=== PATIENT | female | born 1960 | race Caucasian/White ===

== ENCOUNTER 2020-08-16 07:55 | Outpatient (CLI) | payer OTHER, SELFPAY ==
--- NOTE | ~2020-08-16 | MM_ITS ---
EXAMINATION: MM screening genet BI w nico HISTORY: Screening TECHNIQUE: Craniocaudal and mediolateral oblique 3-D tomosynthesis images were obtained and synthetic 2-D images were generated. CAD analysis was submitted and interpreted. COMPARISON: Comparison to multiple prior studies sequentially, with oldest reviewed study dated 01/2011. BREAST PARENCHYMAL COMPOSITION: There are scattered areas of fibroglandular density. FINDINGS: There is no evidence of suspicious mass, calcification, or architectural distortion to sugg est malignancy in either breast. There has been no suspicious interval change. IMPRESSION: 1. No mammographic evidence of malignancy. 2. Recommend routine screening mammography in one year. BI-RADS Category 1: Negative Reviewed, dictated and finalized at location A.
== END 2020-08-16 07:56 | disposition home or self-care (01) ==
LOC: ANHIMG 07:59
PROVIDERS: PCP Internal Medicine; Visit Provider Obstetrics & Gynecology
DX: Z12.31 Encounter for screening mammogram for malignant neoplasm of breast (principal)
CPT/HCPCS: 77063; 77067

== ENCOUNTER → 2020-12-05 12:27 | Outpatient (CLI) | payer OTHER, SELFPAY ==
--- NOTE | ~2020-12-05 | XR_ITS ---
EXAMINATION: XR shoulder RT min 2V DATE: 12/05/2020 12:57 INDICATION: Right shoulder pain. TECHNIQUE: 4 views of right shoulder were obtained. COMPARISON: Right shoulder radiograph 04/18/2012 FINDINGS: There is dextroscoliosis of thoracic spine. No fracture. There is mild glenohumeral joint o steoarthritis and moderate acromioclavicular joint osteoarthritis. IMPRESSION: 1. Polyarticular osteoarthritis. Reviewed, dictated and finalized at location A. 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
--- NOTE | ~2020-12-05 | US_ITS ---
EXAMINATION: US thyroid DATE: 12/05/2020 12:45 INDICATION: Hypothyroidism. TECHNIQUE: Multiple ultrasound images of the thyroid were obtained. COMPARISON: None. FINDINGS: The right thyroid lobe measures 3.8 x 2.0 x 1.4 cm. The left thyroid lobe measures 4.5 x 1.5 x 1.5 c m. The thyroid is diffusely heterogeneous and hypoechoic. No discrete nodule. Vascularity is normal. IMPRESSION: 1. Heterogeneous thyroid, likely chronic lymphocytic (Miladys) thyroiditis. Reviewed, dictated and finalized at location A. 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
== END ==
PROVIDERS: PCP Internal Medicine; Visit Provider Nurse Practitioner
DX: M19.011 Primary osteoarthritis, right shoulder (principal); R79.89 Other specified abnormal findings of blood chemistry; E03.9 Hypothyroidism, unspecified
CPT/HCPCS: 73030; 76536

== ENCOUNTER → 2021-04-11 02:31 | Outpatient (CLI) | payer OTHER, SELFPAY ==
[2021-04-11 23:31] LABS: SARS-CoV-2 RNA PCR Negative
== END ==
PROVIDERS: PCP Internal Medicine; Visit Provider Internal Medicine Gastroenterology
DX: Z01.812 Encounter for preprocedural laboratory examination (principal); Z20.822 Contact with and (suspected) exposure to COVID-19
CPT/HCPCS: C9803; U0003; U0005

== ENCOUNTER 2021-04-14 00:49 | Day surgery (SDC) | payer OTHER, SELFPAY ==
[2021-04-14 06:51] VITALS: BP 124/61; PULSE 72; RESP 20; TEMP 36.4; O2SAT 94; BMI 39.5
[2021-04-14 07:14] LABS: Glucose Point of Care 123 mg/dl (65-105)
--- NOTE | 2021-04-14 07:52 | WPDANESEPPF ---
Anes - Initial Pre Proc Eval Procedure: Operation Date: 04/14/21 08:00 Proposed Procedures p Screening Colonoscopy - Kushal Nuñez MD Date/Time: 04/14/21 07:52 Surgeon: Kushal Nuñez MD Pre Op Diagnosis: neoplasm screening, pers hx colon polyp Patient Data Age: 60 Gender: F Height: 5 ft 7 in Weight: 114.6 kg Last Vital Signs Temp 97.5 F L 04/14/21 06:51 Pulse 72 04/14/21 06:51 Resp 20 04/14/21 06:51 BP 124/61 04/14/21 06:51 Pulse Ox 94 04/14/21 06:51 Allergies Allergy/AdvReac Type Severity Reaction Status Date / Time No Known Allergies Allergy Verified 04/04/21 13:47 Home Medications Medication Instructions Recorded Confirmed Type sertraline 100 mg tablet 100 mg PO DAILY #30 tablet 09/14/19 04/04/21 Rx metformin 500 mg 24 hr 500 mg PO QPM 03/04/20 04/04/21 History tablet,extended release atorvastatin 20 mg tablet 40 mg PO DAILY #90 tablet 12/01/20 04/04/21 Rx bupropion HCl 150 mg 24 hr tablet, 150 mg PO QAM 12/01/20 04/04/21 History extended release omeprazole 20 mg capsule,delayed 20 mg PO DAILY #90 cap 12/01/20 04/14/21 Rx release cholecalciferol (vitamin D3) 1,250 1,250 mcg PO WEEKLY #8 cap 12/07/20 04/04/21 Rx mcg (50,000 unit) capsule sodium,potassium,mag sulfates 17.5 See Rx Instructions PO .COMPLEX 03/22/21 03/29/21 Rx gram-3.13 gram-1.6 gram oral soln #354 ml levothyroxine 125 mcg tablet 125 mcg PO DAILY #60 tablet 03/28/21 04/14/21 Rx trazodone 100 mg tablet See Rx Instructions .ROUTE 04/05/21 Rx .COMPLEX #180 tablet Laboratory Tests 04/14/21 07:06 POC Capillary Glucose 123 mg/dl H mg/dl (65-105) Patient hx anesthesia problems: none Family hx anesthesia problems: none PMFSH Past Medical History Medical History (Updated 03/29/21 @ 08:25 by Patricia Her) Diverticular disease of colon History of toe fracture Surgery 2016 Hypothyroidism Other abnormal glucose Postmenopausal Upper respiratory infection Vitamin D deficiency Surgical History Surgical History (Updated 03/29/21 @ 08:25 by Patricia Her) History of carpal tunnel surgery Family History Family History Mother Family history of diabetes mellitus in first degree relative Family history of kidney disease Acute myocardial infarction Diabetes mellitus Family history of malignant neoplasm Sibling Family history of diabetes mellitus in first degree relative Diabetes mellitus Father Family history of elevated blood lipids Carcinoma of colon Other Family history of arthritis Hypertension Social History Social History Smoking status: Never smoker Alcohol intake: never Living arrangements: with family Spiritual care concerns: No Anes - Eval Final PreProcedure Day of Procedure 04/14/21 07:52 Patient weight: morbidly obese Heart: regular rate and rhythm Lungs: clear to auscultation Airway: Mallampati scale class III Neurological: alert and oriented Last oral intake: >/= 8 hours ASA classification: III Emergent: no Anesthetic plan: proceed Anesthesia type and monitoring: general GIVS and standard monitoring Informed Consent: The patient's anesthetic plan and its attendant risks and benefits were discussed with the patient/family/POA. Questions were solicited and answers provided to the satisfaction of the patient/family/POA.
[2021-04-14] MEDS: LACTATED RINGERS 1,000 ML 150 ML IV CONT (08:00)
[2021-04-14 08:09] VITALS: BP 93/50; PULSE 61; RESP 19; O2SAT 96
[2021-04-14 08:19] VITALS: BP 104/57; PULSE 72; RESP 18; O2SAT 98
[2021-04-14 08:29] VITALS: BP 108/60; PULSE 60; RESP 18; O2SAT 86
--- NOTE | 2021-04-18 16:51 | PM.HPGS ---
History of Present Illness History of Present Illness Consent: Risks, benefits, and alternatives have been discussed and questions answered. Patient agrees to proceed with procedure. Chief complaint: neoplasm screening, pers hx colon polyp Narrative: Michaelle Kennedy is a 60 year old female here for colon cancer screening. She has had polyps removed in the past Review of Systems Review of Systems: All systems reviewed & are unremarkable except as noted in HPI and below PMFSH Past Medical History Medical History Diverticular disease of colon History of toe fracture Surgery 2016 Hypothyroidism Other abnormal glucose Postmenopausal Upper respiratory infection Vitamin D deficiency Surgical History Surgical History History of carpal tunnel surgery Family History Family History Mother Family history of diabetes mellitus in first degree relative Family history of kidney disease Acute myocardial infarction Diabetes mellitus Family history of malignant neoplasm Sibling Family history of diabetes mellitus in first degree relative Diabetes mellitus Father Family history of elevated blood lipids Carcinoma of colon Other Family history of arthritis Hypertension Social History Social History Smoking status: Never smoker Alcohol intake: never Living arrangements: with family Spiritual care concerns: No Meds Home Medications and Allergies Home Medications Medication Instructions Recorded Confirmed Type sertraline 100 mg tablet 100 mg PO DAILY #30 tablet 09/14/19 04/04/21 Rx metformin 500 mg 24 hr 500 mg PO QPM 03/04/20 04/04/21 History tablet,extended release atorvastatin 20 mg tablet 40 mg PO DAILY #90 tablet 12/01/20 04/04/21 Rx bupropion HCl 150 mg 24 hr tablet, 150 mg PO QAM 12/01/20 04/04/21 History extended release omeprazole 20 mg capsule,delayed 20 mg PO DAILY #90 cap 12/01/20 04/14/21 Rx release cholecalciferol (vitamin D3) 1,250 1,250 mcg PO WEEKLY #8 cap 12/07/20 04/04/21 Rx mcg (50,000 unit) capsule sodium,potassium,mag sulfates 17.5 See Rx Instructions PO .COMPLEX 03/22/21 03/29/21 Rx gram-3.13 gram-1.6 gram oral soln #354 ml levothyroxine 125 mcg tablet 125 mcg PO DAILY #60 tablet 03/28/21 04/14/21 Rx trazodone 100 mg tablet See Rx Instructions .ROUTE 04/05/21 Rx .COMPLEX #180 tablet Allergies Allergy/AdvReac Type Severity Reaction Status Date / Time No Known Allergies Allergy Verified 04/04/21 13:47 Exam Const: General: alert Orientation/consciousness: patient oriented x3 Resp: Auscultation: clear to auscultation bilaterally Cardio: Rhythm: regular rhythm GI: GI Palp: Yes Soft to palpation and No Tenderness to palpation present (GI) Neuro: General: patient oriented x3 Assessment and Plan Assessment and plan (1) Screening for colon cancer: Code(s): Z12.11 - Encounter for screening for malignant neoplasm of colon Status: Acute Assessment and Plan: Colonoscopy with possible biopsy or polypectomy or cautery or injection of substances.
== END 2021-04-14 08:45 | disposition home or self-care (01) ==
PROVIDERS: PCP Internal Medicine; Visit Provider Internal Medicine Gastroenterology
PROC: 0DJD8ZZ Inspection of Lower Intestinal Tract, Via Natural or Artificial Opening Endoscopic (ICD-10-PCS; CPT 45378; principal; 2021-04-14 08:00)
DX: Z12.11 Encounter for screening for malignant neoplasm of colon (principal); Z98.0 Intestinal bypass and anastomosis status; K57.30 Diverticulosis of large intestine without perforation or abscess without bleeding; Z86.010 Personal history of colon polyps; Z79.84 Long term (current) use of oral hypoglycemic drugs; E55.9 Vitamin D deficiency, unspecified; E03.9 Hypothyroidism, unspecified; E66.01 Morbid (severe) obesity due to excess calories; Z68.39 Body mass index [BMI] 39.0-39.9, adult
CPT/HCPCS: 45378; 82948; J2704; J7120

== ENCOUNTER 2021-07-13 09:46 | Outpatient (CLI) | payer OTHER, SELFPAY ==
--- NOTE | ~2021-07-13 | DEXA_ITS ---
Bone Density Report Name: Michaelle Kennedy Age: 60 Sex: Female Ethnicity: White Date of : 1960 Indication: postmenopausal; height loss; Referring Provider: Maricarmen Osuna Study: Bone densitometry was performed. Exam Date: July 13, 2021 Accession number: [id number] Bone Density: Region BMD T-score Z-score Classification AP Spine (L1-L4) 0.921 -1.1 0.2 Osteopenia Femoral Neck (Left) 0.749 -0.9 0.3 Normal Total Hip (Left) 0.953 0.1 1.0 Normal Total Hip Bilateral Avg 0.937 -0.1 0.8 Normal Femoral Neck (Right) 0.752 -0.9 0.4 Normal Total Hip (Right) 0.920 -0.2 0.7 Normal World Health Organization criteria for BMD impression classify patients as: Normal (T-score at or above -1.0), Osteopenia (T-score between -1.0 and -2.5), or Osteoporosis (T-score at or below -2.5). 10-year Fracture Risk(1): Major Osteoporotic Fracture 6.0% Hip Fracture 0.3% Reported Risk Factors: [place] (), Neck BMD=0.752, BMI=39.1 (1) FRAX(R) Version 3.08. Fracture probability calculated for an untreated patient. Fracture probability may be lower if the patient has received treatment. Clinical Information Provided by Patient: Has used the following medications: Vitamin D Patient maximum height was 67.5 Menopause Age: 57 No regular weight bearing exercise Drinks caffeinated beverages Onset of menses at age 15 Number of children 1 Impression: The patient has low bone mass, based on the Total Spine T-score. The patient has an estimated ten-year risk of hip fracture of 0.3% and an estimated ten-year risk of major fracture of 6%, based on the WHO FRAX algorithm. Discussion: BONE DENSITY IS LOW AT ONE OR MORE SKELETAL SITES. This patient's lowest T-score is low at one or more skeletal sites. It meets the World Health Organization's (WHO) criteria for ?low bone mass? (T-score between -1.0 and -2.5). The patient's 10-year risk of fracture as calculated by FRAX is less than the threshold where pharmacological therapy is recommended by the National Osteoporosis Foundation (NOF). However, all treatment decisions require clinical judgment and consideration of individual patient factors, including patient preferences, comorbidities, previous drug use, risk factors not captured in the FRAX model (e.g., frailty, falls, vitamin D deficiency, increased bone turnover, interval significant decline in bone density) and possible under or overestimation of fracture risk by FRAX. The patient should follow a healthful lifestyle (good nutrition with adequate calcium and vitamin D, and appropriate weight-bearing exercise). Follow-Up: Consider repeating this study in 2 to 3 years to reassess this patient's status, or sooner if there is some new clinical indication. Reported by: TALI on 07/13/2021 10:10:00 AM.
== END 2021-07-13 09:47 | disposition home or self-care (01) ==
LOC: ANHIMG 09:50
PROVIDERS: PCP Internal Medicine; Visit Provider Nurse Practitioner
DX: M85.80 Other specified disorders of bone density and structure, unspecified site (principal); Z78.0 Asymptomatic menopausal state
CPT/HCPCS: 77080

== ENCOUNTER → 2022-01-24 13:18 | Outpatient (CLI) | payer OTHER, SELFPAY ==
--- NOTE | ~2022-01-24 | XR_ITS ---
XR hip LT min 2V 01/24/2022 13:38 Indication: Left hip pain Procedure: 2 views left hip Comparison: No prior studies for comparison. Findings: Moderate osteoarthritis of the left hip. No fracture or traumatic malalignment. No signific ant soft tissue abnormality. No foreign body. Impression: 1: Moderate osteoarthritis of the left hip. Reviewed, dictated and finalized at location A. Impression: 1: Moderate osteoarthritis of the left hip.
== END ==
PROVIDERS: Visit Provider Nurse Practitioner
DX: M25.552 Pain in left hip (principal); M16.12 Unilateral primary osteoarthritis, left hip
CPT/HCPCS: 73502

== ENCOUNTER 2022-01-26 09:52 | Outpatient (CLI) | payer OTHER, SELFPAY ==
--- NOTE | ~2022-01-26 | MM_ITS ---
EXAMINATION: MM screening genet BI w nico HISTORY: Screening TECHNIQUE: Craniocaudal and mediolateral oblique 3-D tomosynthesis images were obtained and synthetic 2-D images were generated. CAD analysis was submitted and interpreted. COMPARISON: 12/05/2015 BREAST PARENCHYMAL COMPOSITION: The breasts are almost entirely fatty. FINDINGS: There is no evidence of suspicious mass, calcification, or architectural distortion to sugg est malignancy in either breast. There has been no suspicious interval change. IMPRESSION: 1. No mammographic evidence of malignancy. 2. Recommend routine screening mammography in one year. BI-RADS Category 1: Negative Reviewed, dictated and finalized at location A.
== END 2022-01-26 09:53 | disposition home or self-care (01) ==
LOC: ANHIMG 09:53
PROVIDERS: PCP Internal Medicine; Visit Provider Nurse Practitioner
DX: Z12.31 Encounter for screening mammogram for malignant neoplasm of breast (principal)
CPT/HCPCS: 77063; 77067

== ENCOUNTER 2022-08-28 09:30 | Outpatient (RCR) | payer OTHER, SELFPAY ==
[2022-07-19 08:09] VITALS: BMI 38.5
[2022-07-19 11:15] VITALS: BMI 38.5
[2022-08-28 10:24] VITALS: BMI 37.5; BMI 38.5
== END 2022-10-08 11:15 | disposition home or self-care (01) ==
LOC: ANHDMC 09:30
PROVIDERS: PCP Internal Medicine; Visit Provider Nurse Practitioner
DX: E66.9 Obesity, unspecified (principal); Z68.39 Body mass index [BMI] 39.0-39.9, adult; Z71.3 Dietary counseling and surveillance
CPT/HCPCS: 97802; 97803

== ENCOUNTER 2022-10-09 17:55 | Emergency (ER) | payer OTHER, SELFPAY ==
[2022-10-09 17:57] VITALS: BP 129/69; PULSE 81; RESP 18; TEMP 36.4; O2SAT 97
[2022-10-09 18:36] LABS: Strep Group A RT-PCR NOT DETECTED (Negative)
[2022-10-09 18:48] LABS: Influenza A QL RT-PCR Negative (Negative); Influenza B QL RT-PCR Negative (Negative); RSV RNA, RT-PCR Negative (Negative); SARS-CoV-2 RNA PCR Negative
--- NOTE | 2022-10-09 20:06 | ED.GENADULT ---
HPI - General Adult General Chief complaint: Upper Respiratory Infection Stated complaint: cough Time Seen by Provider: 10/09/22 19:43 History of Present Illness HPI narrative: 61-year-old female presenting the emergency department for evaluation of approximately 10 days of respiratory symptoms. Patient states that her grandchildren were sick and now she has symptoms. Patient states over the course of the week she has had cough congestion. Related Data Home Medications Medication Instructions Recorded Confirmed bupropion HCl 150 mg 24 hr tablet, 150 mg PO QAM 12/01/20 07/12/22 extended release calcium carbonate 600 mg calcium 600 mg PO DAILY 07/31/21 07/12/22 (1,500 mg) tablet Allergies Allergy/AdvReac Type Severity Reaction Status Date / Time No Known Allergies Allergy Verified 07/12/22 06:55 Review of Systems Review of Systems: CONSTITUTIONAL: Denies fever, chills, or sweats. EYES: Denies visual changes, redness, or discharge. ENT: Denies rhinorrhea, congestion, sore throat, or otalgia. CARDIOVASCULAR: Denies chest pain, palpitations, or edema. RESPIRATORY: See HPI GASTROINTESTINAL: Denies abdominal pain, nausea, vomiting, or diarrhea. GENITOURINARY: Denies dysuria or hematuria. SKIN: Denies rash or itching. MUSCULOSKELETAL: Denies back pain, joint pain, or myalgia. NEUROLOGIC: Denies headache, numbness, or weakness. [facility] Past Medical History Medical History Diverticular disease of colon History of toe fracture Surgery 2016 Hypothyroidism Other abnormal glucose Postmenopausal Upper respiratory infection Vitamin D deficiency Surgical History Surgical History History of carpal tunnel surgery Family History Family History Mother Family history of diabetes mellitus in first degree relative Family history of kidney disease Acute myocardial infarction Diabetes mellitus Family history of malignant neoplasm Sibling Family history of diabetes mellitus in first degree relative Diabetes mellitus Father Family history of elevated blood lipids Carcinoma of colon Other Family history of arthritis Hypertension Social History Social History (Updated 07/12/22 @ 06:58 by Johny Alvarado) Smoking status: Never smoker Alcohol intake: never Spiritual care concerns: No Exam Narrative: APPEARANCE: Well appearing, no pain, no distress, well-nourished. HEAD: normocephalic, atraumatic. EYES: PERRLA/EOMI, conjunctivae clear. NOSE: Normal no drainage EARS: Left TM erythema THROAT: Pharynx erythema without swelling. NECK: Supple. No adenopathy, no masses. RESPIRATORY: Lungs are clear to auscultation. CARDIOVASCULAR: Regular rate and rhythm without murmurs rubs or gallops. ABDOMINAL: Soft, nontender, nondistended, normal bowel sounds MUSCULOSKELETAL: Moves all extremities. Strength/ROM intact, No edema, No calf tenderness. NEURO: Alert. Cranial nerves II through XII intact. Good gait. Good coordination SKIN: Warm, dry. Normal Color Course Course Emergency Course: Patient is nontachycardic and is not hypoxic. Patient is being treated for an atypical pneumonia and an otitis media. Vital Signs Vital signs: Vital Signs Temperature 97.6 F 10/09/22 17:57 Pulse Rate 81 10/09/22 17:57 Respiratory Rate 18 10/09/22 17:57 Blood Pressure 129/69 10/09/22 17:57 Pulse Oximetry 97 10/09/22 17:57 Oxygen Delivery Room Air 10/09/22 17:57 Temperature 97.6 F 10/09/22 17:57 Pulse Rate 81 10/09/22 17:57 Respiratory Rate 18 10/09/22 17:57 Blood Pressure 129/69 10/09/22 17:57 Pulse Oximetry 97 10/09/22 17:57 Oxygen Delivery Room Air 10/09/22 17:57 Medical Decision Making Vital Signs Vital Signs: Vital Signs Temperature 97.6 F 10/09/22 17:57 Pulse Rate 81 10/09/22 17:57 Respiratory Rate
[2022-10-09] MEDS: BENZONATATE 100 MG CAPSULE PO (20:23)
[2022-10-09] MEDS: AZITHROMYCIN 250 MG TABLET 500 MG PO (20:23)
== END 2022-10-09 20:28 | disposition home or self-care (01) ==
LOC: ANHED 20:19
PROVIDERS: Emergency Provider Emergency Medicine; PCP Internal Medicine
DX: J18.9 Pneumonia, unspecified organism (principal); Z20.822 Contact with and (suspected) exposure to COVID-19; H66.92 Otitis media, unspecified, left ear; E03.9 Hypothyroidism, unspecified
CPT/HCPCS: 87637; 87651; 99283; A9270

== ENCOUNTER 2023-12-16 08:53 | Outpatient (CLI) | payer OTHER, SELFPAY ==
--- NOTE | ~2023-12-16 | DEXA_ITS ---
Bone Density Report Name: ANJELICA HARDING Age: 63 Sex: Female Ethnicity: White Date of : 1960 Indication: postmenopausal; screening for osteoporosis; parental hip fracture; height loss; Referring Provider: TIN LACY Study: Bone densitometry was performed. Exam Date: December 16, 2023 Accession number: [id number] Bone Density: Region BMD T-score Z-score Classification AP Spine(L1-L4) 0.927 -1.1 0.4 Osteopenia Femoral Neck (Left) 0.808 -0.4 1.0 Normal Total Hip (Left) 0.877 -0.5 0.5 Normal Femoral Neck (Right) 0.724 -1.1 0.2 Osteopenia Total Hip (Right) 0.797 -1.2 -0.2 Osteopenia Total Hip Mean 0.837 -0.9 0.2 Normal World Health Organization criteria for BMD impression classify patients as: Normal (T-score at or above -1.0), Osteopenia (T-score between -1.0 and -2.5), or Osteoporosis (T-score at or below -2.5). 10-year Fracture Risk(1): Major Osteoporotic Fracture 14% Hip Fracture 0.4% Reported Risk Factors: [place] (), Neck BMD=0.724, BMI=34.1, parental fracture (1) FRAX(R) Version 3.08. Fracture probability calculated for an untreated patient. Fracture probability may be lower if the patient has received treatment. Clinical Information Provided by Patient: Parent has had a hip fracture Patient maximum height was 67.5 Menopause Age: 57 No regular weight bearing exercise Drinks caffeinated beverages Onset of menses at age 14 Number of children 1 Impression: The patient has low bone mass, based on the Right Total Hip T-score. The patient has an estimated ten-year risk of hip fracture of 0.4% and an estimated ten-year risk of major fracture of 14%, based on the WHO FRAX algorithm. The patient has risk factors, including: parental hip fracture. Discussion: BONE DENSITY IS LOW AT ONE OR MORE SKELETAL SITES. This patient's lowest T-score is low at one or more skeletal sites. It meets the World Health Organization's (WHO) criteria for ?low bone mass? (T-score between -1.0 and -2.5). The patient's 10-year risk of fracture as calculated by FRAX is less than the threshold where pharmacological therapy is recommended by the National Osteoporosis Foundation (NOF). However, all treatment decisions require clinical judgment and consideration of individual patient factors, including patient preferences, comorbidities, previous drug use, risk factors not captured in the FRAX model (e.g., frailty, falls, vitamin D deficiency, increased bone turnover, interval significant decline in bone density) and possible under or overestimation of fracture risk by FRAX. The patient should follow a healthful lifestyle (good nutrition with adequate calcium and vitamin D, and appropriate weight-bearing exercise). Follow-Up: Consider repeating this study in 2 to 3 years to reassess thi
== END 2023-12-16 08:54 | disposition home or self-care (01) ==
LOC: ANHIMG 08:55
PROVIDERS: PCP Family Medicine; Visit Provider Family Medicine
DX: Z78.0 Asymptomatic menopausal state (principal); M85.88 Other specified disorders of bone density and structure, other site; M85.851 Other specified disorders of bone density and structure, right thigh
CPT/HCPCS: 77080

== ENCOUNTER 2024-03-19 08:43 | Outpatient (CLI) | payer OTHER, SELFPAY | END 2024-03-19 08:44 | disposition home or self-care (01) | LOC: ANHAUDIO 08:45 | PROVIDERS: PCP Family Medicine; Visit Provider Family Medicine | DX: H91.90 Unspecified hearing loss, unspecified ear (principal) | CPT/HCPCS: 92552; 92556; 92567 ==

== ENCOUNTER 2024-03-24 19:01 | Emergency (ER) | payer OTHER, SELFPAY ==
[2024-03-24 19:06] VITALS: BP 112/66; PULSE 90; RESP 18; TEMP 36.8; O2SAT 96
[2024-03-24 21:02] LABS: Basophils Percent Auto 0.3 % (0.2-1.2); Eosinophils Percent Auto 0.5 % (0-4.4); Hematocrit 42.3 % (37.0-47.0); Hemoglobin 13.8 g/dL (12.0-15.0); Immature Granulocyte Absolute 0.03 K/mm3 (0.00-0.031); Immature Granulocyte Percent A 0.3 % (0-0.5); Lymphocytes Absolute Auto 1.72 K/mm3 (0.9-3.2); Lymphocytes Percent Auto 19.5 % (18.3-44.2); Mean Corpuscular HGB Conc 32.6 g/dl (32-36); Mean Corpuscular Hemoglobin 31.4 pg (26-34); Mean Corpuscular Volume 96.4 fl (80-100); Mean Platelet Volume 9.1 fl (7.4-10.4); Monocytes Absolute Auto 0.9 K/mm3 (0.1-0.6); Monocytes Percent Auto 10.2 % (2.6-8.5); Neutrophils Absolute Auto 6.1 K/mm3 (1.3-6.7); Neutrophils Percent Auto 69.2 % (45.5-73.1); Platelet Count Result 329 k/mm3 (150-375); Red Blood Count 4.39 M/mm3 (4.2-5.4); Red Cell Distribution Width 12.8 % (11.5-14.5); White Blood Count 8.8 K/mm3 (4.5-10.0)
[2024-03-24 21:13] LABS: Alanine Aminotransferase 21 U/L (6-35); Albumin Level 4.4 g/dL (3.5-5.1); Alkaline Phosphatase 134 U/L (38-126); Anion Gap 7 mmol/L (4-12); Aspartate Amino Transferase 29 U/L (14-36); Bilirubin,Total 0.7 mg/dL (0.2-1.3); Blood Urea Nitrogen 10 mg/dL (7-17); Calcium 9.3 mg/dL (8.4-10.2); Carbon Dioxide 26 mmol/L (22-30); Chloride 98 mmol/L (98-107); Estimated CRCL calculation 117 ml/min; Estimated Glomerular Filt Rate > 60; Glucose 91 mg/dL (65-110); Magnesium 2.1 mg/dL (1.6-2.3); Potassium 4.2 mmol/L (3.4-5.0); Sodium 131 mmol/L (137-145)
[2024-03-24 21:47] LABS: Influenza A QL RT-PCR Negative (Negative); Influenza B QL RT-PCR Negative (Negative); RSV RNA, RT-PCR Negative (Negative); SARS-CoV-2 RNA PCR Negative (Negative)
[2024-03-24 23:27] VITALS: BP 120/56; PULSE 100; RESP 18; O2SAT 100
[2024-03-24] MEDS: SODIUM CHLORIDE 0.9% IV 1,000 ML 999 ML IV CONT (23:34)
[2024-03-24] MEDS: ONDANSETRON INJ 4 MG/2 ML VIAL IV PUSH (23:34)
--- NOTE | 2024-03-25 00:02 | ED.GENADULT ---
HPI - General Adult General Chief complaint: Nausea/Vomiting/Diarrhea Stated complaint: nausea Time Seen by Provider: 03/24/24 23:11 History of Present Illness HPI narrative: Patient is a 63-year-old female who presents to the emergency department this evening complaining nausea, vomiting and diarrhea. Patient states that symptoms started approximately 2 days ago. Patient had diarrhea last night and then again today, nonbloody. Patient states that she has also noticed that she is nauseous and does not have an appetite and has not had much to eat in the last 2 days. Patient denies any sick contacts at home, denies any fevers or chills, denies any upper respiratory symptoms. She denies any chest pain, shortness of breath, or any abdominal pain. No additional symptoms or concerns at this time Related Data Home Medications Medication Instructions Recorded Confirmed cholecalciferol (vitamin D3) 50 50 mcg PO DAILY PRN 02/20/24 mcg (2,000 unit) tablet omeprazole 20 mg capsule,delayed 20 mg PO DAILY PRN 02/20/24 release Allergies Allergy/AdvReac Type Severity Reaction Status Date / Time No Known Allergies Allergy Verified 03/24/24 23:30 Review of Systems Review of Systems: All systems are reviewed and are negative unless stated otherwise in the HPI. [facility] Past Medical History Medical History Diverticular disease of colon History of toe fracture Surgery 2016 Hypothyroidism Other abnormal glucose Postmenopausal Upper respiratory infection Vitamin D deficiency Surgical History Surgical History History of carpal tunnel surgery Family History Family History Mother Family history of diabetes mellitus in first degree relative Family history of kidney disease Acute myocardial infarction Diabetes mellitus Family history of malignant neoplasm Sibling Family history of diabetes mellitus in first degree relative Diabetes mellitus Father Family history of elevated blood lipids Carcinoma of colon Other Family history of arthritis Hypertension Social History Social History Smoking status: Never smoker Alcohol intake: never Substance use: never Substance use type: does not use Lack of Transportation: No Lack of Food: Never True Current Housing: I Have Housing Concerned About Future Housing: No Difficulty Paying Gas/Electric Bills: YES Difficulty Paying for Meds: No Currently Unemployed: No Education: High School Diploma/GED Difficulty w/ Childcare or Family Care: No Living arrangements: with family Spiritual care concerns: No Exam Narrative: General: Alert, awake, afebrile, in no acute distress. HEENT: PERRL, no rhinorrhea, no post nasal drip, oropharynx clear. Cardiovascular: Regular rate and rhythm, no murmurs, rubs or gallops, no peripheral edema. Respiratory: Clear to auscultation bilaterally, no tachypnea, no wheezing, no rhonchi, no rubs, no respiratory distress. Abdomen: Soft, nontender, nondistended, no rebound, no guarding, no peritoneal signs. Musculoskeletal: No joint swelling or deformity, normal muscle tone. Skin: No rashes or petechia, no signs of infection. Neurological: Alert and oriented to person, place, and time. Follows all commands. No focal deficits, speech is clear and fluent. Course Vital Signs Vital signs: Vital Signs Temperature 98.2 F 03/24/24 19:06 Pulse Rate 90 03/24/24 19:06 Respiratory Rate 18 03/24/24 19:06 Blood Pressure 112/66 03/24/24 19:06 Pulse Oximetry 96 03/24/24 19:06 Temperature 98.2 F 03/24/24 19:06 Pulse Rate 95 03/25/24 01:05 Respiratory Rate 18 03/25/24 01:05 Blood Pressure 93/68 L 03/25/24 01:05 Pulse Oximetry 100 03/25/24 01:05 Medical
[2024-03-25 00:07] VITALS: BP 99/58; PULSE 93; RESP 18; O2SAT 97
[2024-03-25] MEDS: SODIUM CHLORIDE 0.9% IV 1,000 ML 999 ML IV CONT (00:40)
[2024-03-25 01:05] VITALS: BP 93/68; PULSE 95; RESP 18; O2SAT 100
== END 2024-03-25 03:00 | disposition home or self-care (01) ==
PROVIDERS: Emergency Provider Emergency Medicine; PCP Family Medicine
DX: R11.2 Nausea with vomiting, unspecified (principal); R19.7 Diarrhea, unspecified; Z20.822 Contact with and (suspected) exposure to COVID-19; E03.9 Hypothyroidism, unspecified; E55.9 Vitamin D deficiency, unspecified; Z79.85 Long-term (current) use of injectable non-insulin antidiabetic drugs; Z79.84 Long term (current) use of oral hypoglycemic drugs
CPT/HCPCS: 36415; 80053; 83735; 85025; 87637; 96361; 96374; 99284; J2405; J7030

== ENCOUNTER 2024-05-22 11:01 | Outpatient (CLI) | payer OTHER, SELFPAY ==
--- NOTE | ~2024-05-22 | MM_ITS ---
EXAMINATION: MM screening genet BI w nico HISTORY: Screening TECHNIQUE: Craniocaudal and mediolateral oblique 3-D tomosynthesis images were obtained and synthetic 2-D images were generated. CAD analysis was submitted and interpreted. COMPARISON: Comparison to multiple prior studies sequentially, with oldest reviewed study dated 11/2013. BREAST PARENCHYMAL COMPOSITION: Not dense: There are scattered areas of fibroglandular density. FINDINGS: There is no evidence of suspicious mass, calcification, or architectural distortion to sugg est malignancy in either breast. There has been no suspicious interval change. IMPRESSION: 1. No mammographic evidence of malignancy. 2. Recommend routine screening mammography in one year. BI-RADS Category 1: Negative Reviewed, dictated and finalized at location B.
== END 2024-05-22 11:02 ==
LOC: MICIMG 11:02
PROVIDERS: PCP Family Medicine; Visit Provider Obstetrics & Gynecology
DX: Z12.31 Encounter for screening mammogram for malignant neoplasm of breast (principal)
CPT/HCPCS: 77063; 77067

== ENCOUNTER 2025-04-04 16:39 | Emergency (ER) | payer OTHER, SELFPAY ==
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
[2025-04-04 16:50] VITALS: BP 109/59; PULSE 78; RESP 16; TEMP 36.7; O2SAT 97
[2025-04-04 17:00] VITALS: BP 105/55; PULSE 82; RESP 16; O2SAT 97
--- NOTE | 2025-04-04 17:32 | ECG_ITS ---
Test Date: 2025-04-04 17:47:44 Measurements Intervals [place] Rate: 73 P: 38 FL: 202 QRS: -14 QRSD: 84 T: 31 QT: 389 QTc: 430 Interpretive Statements SINUS RHYTHM LOW QRS VOLTAGE IN PRECORDIAL LEADS BASELINE ARTIFACT- I, II, III, AVR, AVL BORDERLINE ECG No previous ECG available for comparison Electronically Signed On 04-04-2025 19:15:23 CDT by Jovan Nassar D.O.
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
[2025-04-04 17:45] VITALS: BP 108/57; PULSE 76; RESP 18; O2SAT 96
[2025-04-04 17:58] LABS: Basophils Percent Auto 0.4 % (0.2-1.2); Eosinophils Absolute Auto 0.1 K/mm3 (0-0.3); Eosinophils Percent Auto 0.9 % (0-4.4); Hematocrit 36.3 % (37.0-47.0); Hemoglobin 11.9 g/dL (12.0-15.0); Immature Granulocyte Absolute 0.06 K/mm3 (0.00-0.031); Immature Granulocyte Percent A 0.7 % (0-0.5); Lymphocytes Absolute Auto 1.29 K/mm3 (0.9-3.2); Lymphocytes Percent Auto 14.2 % (18.3-44.2); Mean Corpuscular HGB Conc 32.8 g/dl (32-36); Mean Corpuscular Hemoglobin 31.5 pg (26-34); Mean Platelet Volume 9.1 fl (7.4-10.4); Monocytes Absolute Auto 0.6 K/mm3 (0.1-0.6); Monocytes Percent Auto 6.5 % (2.6-8.5); Neutrophils Percent Auto 77.3 % (45.5-73.1); Platelet Count Result 265 k/mm3 (150-375); Red Blood Count 3.78 M/mm3 (4.2-5.4); Red Cell Distribution Width 12.4 % (11.5-14.5); White Blood Count 9.1 K/mm3 (4.5-10.0)
[2025-04-04 18:07] LABS: Alanine Aminotransferase 22 U/L (6-35); Alkaline Phosphatase 106 U/L (38-126); Anion Gap 5 mmol/L (4-12); Aspartate Amino Transferase 31 U/L (14-36); Bilirubin,Total 0.4 mg/dL (0.2-1.3); Blood Urea Nitrogen 16 mg/dL (7-17); Carbon Dioxide 28 mmol/L (22-30); Chloride 103 mmol/L (98-107); Estimated CRCL calculation 78 ml/min; Estimated Glomerular Filt Rate > 60; Glucose 96 mg/dL (65-110); Potassium 3.9 mmol/L (3.4-5.0); Sodium 136 mmol/L (137-145)
[2025-04-04 18:19] LABS: Add Urine Microscopic? YES; Appearance Urine Clear (Clear); Bacteria Urine None Seen /hpf; Bilirubin Urine Negative (Negative); Blood Urine Negative (Negative); Color Urine Yellow (Yellow); Glucose Urine UA Negative (Negative); Ketones Urine Negative (Negative); Leukocyte Esterase Ur 1+ LEU/UL (Negative); Need Manual Microscopic Reviewed; Nitrate Urine Negative (Negative); Non Pathogenic Casts 0-2; Protein Urine Negative (Negative); RBC Urine 0-2 /hpf (0-2); Squamous Epithelial Cell Urine None Seen /hpf (Few); Troponin I < 0.012 ng/mL (0.000-0.034); WBC Urine 0-5 /hpf (0-3); pH Urine 5.5 (5.0-9.0)
--- OUTSIDE RECORDS SUMMARY | 2025-04-04 18:46 | XMS_ITS | Referral Summary ---
Author Organization [facility] Address [address] [place] [address] Care Team Providers Care Volunteer Recruiter Name Role Phone Chris Dye MD Unavailable [phone] Logan Britton MD Primary Care Provider [phone] Allergies No known active allergies Medications traZODone (DESYREL) 100 mg tabletIndicatio ns:major depressive disorder Take 2 tablets (200 mg total) by mouth nightly Active sertraline (ZOLOFT) 100 mg tabletIndicatio ns:Anxiety with Depression Take 1 tablet (100 mg total) by mouth nightly 8 Active omeprazole (PriLOSEC) 20 mg capsuleIndicati ons:Stress Ulcer Prophylaxis Take 1 capsule (20 mg total) by mouth daily as needed (acid reflux) Active dicyclomine (BENTYL) 20 mg tabletIndicatio ns:Irritable Bowel Syndrome Take 1 tablet (20 mg total) by mouth every 6 (six) hours as needed (cramps) Active atorvastatin (LIPITOR) 40 mg tabletIndicatio ns:hyperlipidem ia Take 1 tablet (40 mg total) by mouth nightly at bedtime 4 Active levothyroxine (SYNTHROID) 100 mcg tabletIndicatio ns:hypothyroidi sm 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 4 Active Mounjaro 10 mg/0.5 mL pen injectorIndicat ions:type 2 diabetes mellitus Inject 10 mg under the skin once a week Saturday or Saturday 4 Active metFORMIN XR (GLUCOPHAGE XR) 500 mg 24 hr tabletIndicatio ns:Prevention of Type 2 Diabetes Mellitus Take 1 tablet (500 mg total) by mouth nightly 4 Active ibuprofen (ADVIL,MOTRIN) 600 mg tabletIndicatio ns:Pain Take 1 tablet (600 mg total) by mouth every 6 (six) hours as needed for pain Active calcium carbonate (OS-BERTHA) 648 mg (260 mg elemental) tabletIndicatio ns:Osteoporosis Take 1 tablet (648 mg total) by mouth daily Active cholecalciferol (VITAMIN D-3) 75564 unit capsuleIndicati ons:Vitamin D Deficiency Take 2,000 Units by mouth daily Active docusate sodium (COLACE) 100 mg capsuleIndicati ons:constipatio n Take 1 capsule (100 mg total) by mouth 2 (two) times a day as needed for constipation 20 capsule 4 Active aspirin 325 mg tabletIndicatio ns:prevention of thrombosis Take 1 tablet (325 mg total) by mouth daily 30 tablet 4 Active HYDROcodone-jitendra taminophen (NORCO) 5-325 mg per tabletIndicatio ns:Pain Take 1 tablet by mouth every 4 (four) hours as needed for pain Do not taken empty stomach or lie down immediately after taking, do not mixed with alcohol or other narcotic pain medications, do not drive after taking 30 tablet 4 Active Additional Information Patient not taking.Reported on 10/07/2024 Active Problems Problem Noted Date Diagnosed Date S/P total left hip arthroplasty 08/06/2024 Anxiety and depression 07/22/2024 Type 2 diabetes mellitus 07/22/2024 Gastroesophageal reflux disease 07/22/2024 Hypercholesterolemia 07/22/2024 Hypothyroidism 07/22/2024 Irritable bowel syndrome 07/22/2024 Left hip pain 04/22/2024 Arthritis of left hip 04/20/2024 Assessment & Plan (04/20/2024 3:58 PM CDT): The patient has end-stage arthritis of the left hip with complete joint space obliteration radiographically. She is failed to respond to conservative measures including physical therapy and joint injections by pain management. She is markedly impaired by the hip and becoming more incapacitated. The patient is currently using a walker and has limited mobility. She wants proceed with definitive treatment would recommend hip replacement surgery. Patient will be enrolled in a total hip protocol. Will check preoperative labs help determine if there is any potential wound healing issues that can be corrected prior to surgery. I would recommend preadmission testing and medical clearance. The risks of hip replacement surgery include infection, incisional numbness, neurovascular compromise, blood loss, blood clots, limb length inequality, fracture, dislocation, where with possible need for revision, wound he has since, medical and anesthetic risks including . The patient should be taking iron supplements two weeks prior to surgery and preparation for perioperative blood loss Primary osteoarthritis of left hip 04/20/2024 Leukocytosis 01/06/2019 Overview (10/07/2024): Elevated white blood cell count, unspecified;Practice ID: [id number] Painful orthopaedic hardware 06/19/2018 Overview (06/19/2018): Added automatically from request for surgery [id number] Contracture of joint of finger of left hand 06/04 Overview (06/19/2018): Added automatically from request for surgery [id number] Extensor tendon adhesions 06/19/2018 Overview (06/19/2018): Added automatically from request for surgery [id number] Closed displaced fracture of posterior process of right talus 03/05/2018 Dislocation of right subtalar joint 03/05/2018 Obesity with body mass index 30 or greater 12/25 Overview (10/07/2024): Body mass index (BMI) 38.0-38.9, adult;Recorded Elsewhere: No Location: [facility] Source: EHR Chronic: N Practice ID: [id number] Billable Time: 08:30:00 AM Atypical squamous cells of u ndetermined significance on cytologic smear of cervix (ASC-US) 09/20/2014 Amenorrhea 09/04/2011 Overview (10/07/2024): Absence of menstruation;Recorded Elsewhere: No Location: [facility] Source: EHR Chronic: N Practice ID: [id number] Billable Time: 08:30:00 AM Menopausal symptom 09/04/2011 Overview (10/07/2024): Menopausal or female climacteric states;Recorded Elsewhere: No Location: [facility] Source: EHR Chronic: N Practice ID: [id number] Billable Time: 08:30:00 AM Social History Tobacco Use Types Packs/Day Years Used Date Smoking Tobacco: Never Smokeless Tobacco: Never Alcohol Use Standard Drinks/Week Comments No 0 (1 standard drink = 0.6 oz pur e alcohol) OASIS D0700: Social Isolation Answer Da te Recorded Frequency of experiencing loneliness or isolatio n Never 07/28/2024 [facility] Utilities Answer Date Recorded In the past 12 months has e electric, gas, oil, or water company threatened to shut off services in your home? No 07/24/2024 Social Connection and Isolat ion Panel [NHANES] Answer Date Recorded In a typical week, how many times do you talk on the phone with family, friends, or neighbors? More than three times a week 07/24/2024 How often do you get togethe r with friends or relatives? More than three times a week 07/24/2024 How often do you attend chur ch or caodaism services? More than 4 times per year 07/24/2024 Do you belong to any clubs o r organizations such as mormonism groups, unions, fraternal or athletic groups, or school groups? No 07/24/2024 How often do you attend meet ings of the clubs or organizations you belong to? Never 07/24/2024 Are you , , di vorced, , never , or living with a partner? 07/24/2024 AUDIT-C Answer Date Recorded Q1: How often do you have a drink containing alcohol? Never 07/10/2024 Q2: How many drinks containi ng alcohol do you have on a typical day when you are drinking? Patient does not drink Q3: How often do you have si x or more drinks on one occasion? Never 07/10/2024 Overall Financial Resource Strain (CARDIA) Answe r Date Recorded How hard is it for you to pa y for the very basics like food, housing, medical care, and heating? Not hard at all 07/24/2024 Hunger Vital Sign Answer Date Recorded Within the past 12 months, y ou worried that your food would run out before you got the money to buy more. Never true 07/24/20 24 Within the past 12 months, t he food you bought just didn't last and you didn't have money to get more. Never true 07/24/2024 PRAPARE - Transportation Answer Date Re corded In the past 12 months, has l ack of transportation kept you from medical appointments or from getting medications? No 07/06 In the past 12 months, has l ack of transportation kept you from meetings, work, or from getting things needed for daily living? No 07/24/2024 Housing Stability Vital Sign Answer Keenan e Recorded In the last 12 months, was t here a time when you were not able to pay the mortgage or rent on time? No 07/24/2024 In the past 12 months, how m any times have you moved where you were living? 1 07/24/2024 At any time in the past 12 m [facility], were you homeless or living in a group home (including now)? No 07/24/2024 Personal Safety Answer Date Recorded Have you ever been in or are you currently in a harmful physical or emotional relationship or is someone making you feel afraid or unsafe? 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 Gender Identity Not on file Sexual Orientation Not on file Last Filed Vital Signs Vital Sign Reading Time Taken Comments Blood Pressure 92/69 09/02/2024 9:39 AM CDT Pulse 72 09/02/2024 9:39 AM CDT Temperature 36.8 C (98.3 F) 09/02/2024 9:39 AM CDT Respiratory Rate 18 09/02/2024 9:39 AM CDT Oxygen Saturation 98% 09/02/2024 9:39 AM CDT Inhaled Oxygen Concentration - - Weight 77.6 kg (171 lb) 08/05/2024 9:33 AM CDT Height 170.2 cm (5' 7.01) 10/07/2024 2:39 PM CS T Body Mass Index 26.78 07/22/2024 6:26 AM CDT Plan of Treatment Not on file Medical Devices Implanted Type Area Slip Presser Device Identifier Shelf Expiration Date Model / Serial / Lot [employer] Trilogy 6.5mm 25mm Self Tap Screw Bone [id number] - [id number] Implanted:Qty: 1 on 07/22/2024 by Desmond Harry MD at Left: Hip [employer] [id number] 01/14/2034 [id number] / / [id number] [employer] G7 52mm Limit Hole Hip E Hemisphere Shell Acetabular Pps [id number] - [id number] Implanted:Qty: 1 on 07/22/2024 by Desmond Harry MD at Left: Hip [employer] [id number] 02/27/2034 [id number] / / [id number] [employer] Liner Acetabular Hip Standard G7 Longevity 36mm Polyethylene Size E [id number] - [id number] Implanted:Qty: 1 on 07/22/2024 by Demsond Harry MD at Left: Hip [employer] [id number] 09/24/[id number] / / [id number] [employer] Echo Bi-Metric 13mm 145mm Noncollar Reduce Proximal Profile Press [id number] - [id number] Implanted:Qty: 1 on 07/22/2024 by Desmond Harry MD at Left: Hip [employer] [id number] 12/24/2033 [id number] / / [id number] [employer] G7 36mm Hip Head Femoral Biolox Delta Option 650-1057 - [id number] Implanted:Qty: 1 on 07/22/2024 by Desmond Harry MD at Left: Hip [employer] 02/27/2034 [id number] / / [id number] [employer] G7 Type 1 Hip +3mm Offset Taper Sleeve Centering Titanium Biolox 650-1067 - [id number] Implanted:Qty: 1 on 07/22/2024 by Desmond Harry MD at Left: Hip [employer] 09/23/2033 [id number] / / [id number] Procedures Procedure Name Priority Date/Time Associated Diagnosis Comments EGFR Routine 07/24/2024 1:11 AM CDT HEMOGLOBIN A1C Routine 04/20/2024 5:51 PM CDT Pain of left hip Arthritis of left hip Pre-op testing Hypoglycemia Vitamin D deficiency from Last 3 Months or Most Recently Relevant to Health Maintenance Results * eGFR (07/24/2024 1:11 AM CDT) eGFR >90 >=60 mL/min/1. 73 m2 Comment: Interpretive Data Reference Interval Normal >/= 90 mL/min/1.73m2 Mildly decreased* 60 - 89 mL/min/1.73m2 Mildly to moderately decreased 45 - 59 mL/min/1.73m2 Moderately to severely decreased 30 - 44 mL/min/1.73m2 Severely decreased 15 - 29 mL/min/1.73m2 Kidney Failure < 15 mL/min/1.73m2 *Relative to young adult level Estimated glomerular filtration rate is determined by the 2020 CKD-EPI equation recommended by the National Kidney Foundation (A Unifying Approach to GFR Estimation: Recommendations of the NKF-ASK Task Force on Reassessing the Inclusion of Race in Diagnosing Kidney Disease, JASN 202). The CKD-EPI equation should not be used for patients with unstable renal function and has not been validated in children and those over 70. Current interpretive data was last reviewed 2021. Blood 07/24/2024 1:11 AM CDT 07/24/2024 1:38 AM CDT us Desmond Harry MD LAB BLOOD ORDERABLES Final Result [facility] [address] [place] [address] * Hemoglobin A1c (04/20/2024 5:51 PM CDT) Hgb A1C 5.2 4.0 - 5.6 % Estimated Average Glucose 103 mg/dL [facility] Comment: The ADA recommends reporting an estimated Average Glucose (eAG) with all Hemoglobin A1c results using the equation derived from a study of 507 normal and diabetic adults. Minority populations were underrepresented and children were not included. (Diabetes Care 31:4704-1545, 2008). The eAG is not equivalent to a fasting glucose. Blood 04/20/2024 5:51 PM CDT 04/20/2024 5:51 PM CDT Desmond Harry MD LAB BLOOD ORDERABLES Final Result Performing Organization Address City/[facility] Co de Phone Number [facility] [address] [place] [address] from Last 3 Months or Most Recently Relevant to Health Maintenance Insurance [facility] [id number] [place] [address] [employer] [facility] [id number] Advance Directives For more information, please contact: [phone] * Full Code (Latest Code Status on File) Date Activated Date Inactivated Comments 07/22/2024 1:50 PM 07/25/2024 9:50 PM Care Teams 

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
--- OUTSIDE RECORDS SUMMARY | 2025-04-04 18:46 | XMS_ITS | Data Portability ---
Author Organization [facility], [place] Address [address] [place] [address] Care Team Providers Care Prefitter Doors Name Role Phone KALPANA BROCK Primary Care Provider Assessment Encounter Date Assessment Date Assessment LastModified by Organization Details LastModified Time 08/23/2020 08/23/2020 Annual gynecological exam performed. Patient will come back in a year unless there are new symptoms. rf medications call if any changes Not available 08/23/2020 15:54:38 09/01/2021 09/01/2021 Annual gynecological exam performed. Patient will come back in a year unless there are new symptoms. Suggest Calcium with Vitamin D if not eating in diet. Patient advised to get annual flu shot. Recommend yearly physicals and preform monthly breast exams. Genetic testing is available for patients with family history of cancer. Engage in safe sexual practices, use condoms. Encouraged to have daily exercise. Avoid tobacco and illicit drugs, moderation of alcohol. If BMI greater than 25 dietary consult advised. If you have any questions please call or email. mammogram order given Not available 09/01/2021 10:36:53 08/06/2023 08/06/2023 Annual gynecological exam performed. Patient will come back in a year unless there are new symptoms. [email or web address] Not available 08/06/2023 09:57:55 Plan of Treatment Reminders Order Date Submit Date Provider Last Modified By Organization Details Last Modified Time Details Appointments None recorded. Lab None recorded. Referral None recorded. Procedures None recorded. Surgeries None recorded. Imaging MAMMO, screening, digital, bilateral [email or web address] [place] [address] - [facility], [address], [place], [address], 4 15:03:34 Medication Orders sertraline 100 mg tablet 2022 023 [facility], [address] [facility], [place], [address], 3 14:13:36 Patient TargetsNo targets recorded. Patient Instructions Encounter Date Encounter Id Patient Instructions Last Modified By Organization Details Last Modified Time 08/23/2020 [id number] Suggest Calcium with Vitamin D if not eating in diet. Patient advised to get annual flu shot. Recommend yearly physicals and preform monthly breast exams. Genetic testing is available for patients with family history of cancer. Engage in safe sexual practices, use condoms. Encouraged to have daily exercise. Avoid tobacco and illicit drugs, moderation of alcohol. If BMI greater than 25 dietary consult advised. If you have any questions please call or email. Not available 08/23/2020 15:54:54 Reason for Referral None Reported. Results Created Date Observation Date Name Description Value Unit Range Abnormal Flag Note LastModifiedBy Organization Detail LastModifiedTime 08/23/2008/26/2020 pap, LB Pap test thin prep Negati ve for Intrae pithel ial Lesion or Malign vijaya normal ACCES ALISA #: [id number] Sourc e: Cervi bertha/E ndoce rvica l LMP: 2009 Date Taken : 08/23 Speci men Type: ThinP rep Vial Date Repor joce: 08/26 Clini bertha Data: Cytot ech: Wong Damon Solle y, CT( CP) Date Repor joce: 08/26 Speci men Adequ acy: Satis facto ry for evalu ation Endoc ervic al/tr ansfo rmati on zone compo nent prese nt Gener al Categ oriza tion: NEGAT JP FOR INTRA EPITH ELIAL LESIO N OR MALIG JESSICA This speci men has been khadijah zed by the ThinP rep Imagi ng Syste m, an inter activ e compu ter syste m which alcides ts the lab in the [facility] of ThinP rep Pap Test slide albaro liu, the slide was revie wed by a Cytot echno logis t and/o r Patho logis tCalvin Rascon N A A S S A Y S R E P O R T TEST NAME CARLOS RIVERO ----- ---- ----- -- HPV High Risk Srinath n (TMA) ThinP rep Vial The human papil lomav irus (HPV) High Risk Scrececilia n is an FDA-a pprov ed in-vi tro ampli fied nucle ic acid test for the quali tativ e detec tion of E6/E7 viral mRNA. Resul ts shoul d be corre lated with patie nt prese ntati on, histo ry, cervi bertha cytol ogy and other clini bertha and labor atory findi ngs. See https ://Unsocial/s ites/ defshiraz lt/fi les-0 AW- [id number] _002_ .pd f for krista gonzales. Test perfo rmed by [facility], d/b/a Benjamín iglesias, [address] [facility], [place] [address] , Bryan Wagner ra, DO, Labor atory [facility]. HPV High Risk *HPV NOT DETEC JOCE (TYPE S 16, 18, 31, 33, 35, 39, 45, 51, 52, 56, 58, 59, 66, 68) *HPV: The human papil lomav irus (HPV) High Risk Scrececilia n is an FDA-a pprov ed in-vi tro ampli fied nucle ic acid test for the quali tativ e detec tion of E6/E7 viral mRNA. Resul ts consueloul d be corre lated with patie nt prese ntati on, histo ry, cervi bertha cytol ogy and other clini bertha and labor atory findi ngs. See https ://Unsocial/s ites/ defshiraz lt/fi les/ 018-0 AW- 76829 _002_ .pd f for krista er cinthiar fang gonzales. Test perfo rmed by [facility] [employer], d/b/a [employer], [address], [place] [address] , Bryan Wagner ra, DO, Labor [facility]. End of Repor t Techn ical servi enzo provi ded by [facility] [email or web address], d/b/a [employer], [address] [place] [address] Bebo Young MD, [facility]. Case revie wed and diagn osis rende red at [facility] [employer], d/b/[employer], [address] [place] [address] Bebo Young MD, [facility]. CONFI DENTI AL Not Available [facility] ([facility]) [address] [place] [address], [place], [address], 08/26/2020 12:41:27 08/23/20 20 08/26/2020 HPV DNA, high- risk HPV high risk NOT DETECT ED normal Not Available [facility] ([facility]) [address] [place] [address], [place], [address], 08/26/2020 12:41:27 09/01/20 21 09/01/2021 IMAGE GUIDE D PAP AND HPV REGAR DLESS image guided Pap, HPV regardless of Pap result SEE RESULT S BELOW CASE REPOR T: Cytol ogy Gynec ologi bertha Repor t Case: [id number] Autho julio g Provi faby: Rebecca Rogers NP Colle cted: 09/01 1208 Order ing Locat ion: [place] Path[facility] log[facility] Recei eryn: 09/02 0018 First Scree n: Strut z, Willi am, CT Speci men: Scree jacobo Pap - Image d, Cervi x STATE MENT OF ADEQU ACY: Satis facto ry for evalu ation Trans forma tion zone compo nent canno t be defin itive ly ident ified due to the prese nce of atrop hy or other hormo nal akhtar es FINAL DIAGN OSIS: Negat jp for Intra epith elial Lesio n or Opal avitia (NIL) . Atrop hic cell anne abdi. Li phelan elfego d by Rajiv alonzo, Wong strong, CT on 2020 at 1:05 PM ----- ----- ----- ----- ----- ----- ----- ----- ----- ----- ----- ----- ----- ----- ----- ----- ----- ---- HPV RESUL TS: HPV mRNA E6/E7 : No HPV mRNA Detec joce NOTE: This high risk HPV mRNA assay detec ts fourt een high- risk HPV types (16, 18, 31, 33, 35, 39, 45, 51, 52, 56, 58, 59, 66, 68) witho ut diffe renti ation . COMME NT: Note: This speci men was revie wed by a Cytot echno logis t and/o r Patho logis t (as indic ated in this repor t) after evalu ation using the Thinp rep Imagi ng Syste m. CLINI BERTHA INFOR MATIO N: Menst rual Statu s: LMP (if appli cable ): Clini bertha Histo ry/Pr eviou s Pap: Type of Neopl gary (if appli cable ): Signi fican t Clini bertha Findi ngs: Other Histo ry: Hormo quyen (if appli cable ): PAP EDUCA LEANDER L NOTE: The Pap Test is a scree jacobo test with an inher ent false negat jp rate. Liqui d-bas e sampl ing may decre ase, but will not elimi gume, false negat jp resul ts. A negat jp resul t does not precl ude the prese nce and/o r devel opmen t of disea se, since the prese nce of abnor mal cells in the sampl e depen ds on the locat ion of the lesio n and sampl ing techn ique. Amos nued regul ar scree jacobo is the best metho d of cance r preve ntion . If repor joce cytol ogic findi ng do not corre late with physi bertha and/o r histo rical findi ngs, furth er inves tigat ion is recom deepika d, as clini edgardo rose nted. Not Available [facility] (Lab) [address] [facility], [place], [address], 09/08/2021 14:10:36 08/06/20 23 08/06/2023 IMAGE GUIDE D PAP AND HPV REGAR DLESS image guided Pap, HPV regardless of Pap result SEE RESULT S BELOW CASE REPOR T: Cytol ogy Gynec ologi bertha Repor t Case: [id number] Autho julio g Provi faby: Teresita Story, MALIA Colle cted: 08/06 1148 Order ing Locat ion: [place] Patho logy Recei eryn: 08/07 0239 First Scree n: Soy asencio, Regan ovalles, CT Speci men: Scree jacobo Pap - Image d, Cervi x STATE MENT OF ADEQU ACY: Satis facto ry for evalu ation Trans forma tion zone compo nent prese nt FINAL DIAGN OSIS: Negat jp for Intra epith elial Lesio n or Opal avitia (NIL) . Atrop hy prese nt. Elect thanh phelan elfego d by Regan Kirby, CT on 2022 at 2:50 PM ----- ----- ----- ----- ----- ----- ----- ----- ----- ----- ----- ----- ----- ----- ----- ----- ----- ---- HPV RESUL TS: HPV mRNA E6/E7 : No HPV mRNA Detec joce NOTE: This high risk HPV mRNA assay detec ts fourt een high- risk HPV types (16, 18, 31, 33, 35, 39, 45, 51, 52, 56, 58, 59, 66, 68) witho ut diffe renti ation . COMME NT: This speci men was revie wed by a Cytot echno logis t and/o r Patho logis t (as indic ated in this repor t) after evalu ation using the Thinp rep Imagi ng Syste m. CLINI BERTHA INFOR MATIO N: Menst rual Statu s: LMP (if appli cable ): Clini bertha Histo ry/Pr eviou s Pap: Type of Neopl gary (if appli cable ): Signi fican t Clini bertha Findi ngs: Other Histo ry: Hormo quyen (if appli cable ): PAP EDUCA LEANDER L NOTE: The Pap Test is a scree jacobo test with an inher ent false negat jp rate. Liqui d-bas ed sampl ing may decre ase, but will not elimi gume, false negat jp resul ts. A negat jp resul t does not precl ude the prese nce and/o r devel opmen t of disea se, since the prese nce of abnor mal cells in the sampl e depen ds on the locat ion of the lesio n and sampl ing techn ique. Amos nued regul ar scree jacobo is the best metho d of cance r preve ntion . If repor joce cytol ogic findi ng do not corre late with physi bertha and/o r histo rical findi ngs, furth er inves tigat ion is recom deepika d, as clini edgardo warrsowmya nted. Not Available [facility] (Lab) [address], [place], [address], 08/08/2023 15:55:09 08/16/2008/16/2020 MAMMO scrececilia louiseg, bilat eral No observ ation record ed. [facility] [address] [facility] [address], [place], [address], 08/16/2020 22:14:45 04/19/20 22 07/13/2021 MAMMO , scree jacobo, bilat eral No observ ation record ed. [facility] [address], [place], [address], 04/22/2022 18:33:26 05/22/20 24 05/22/2024 MAMMO , scree jacobo, digit al, bilat eral No observ ation record ed. [facility] [address], [place], [address], 05/24/2024 10:20:29 Result Notes None recorded. Problems Name Problem SNOMED Code Status Onset Date Resolution Date Notes Provider Name and Address Organization Details Recorded Time SNOMED CT Concept Completed 201508/31/2021 Encntr for inspector rough castings exam (general ) (routine ) w/o abn findings ;Recorde d Elsewher e: No Locat ion: [facility] S ource: EHR Barratte Operator cee: N Gopal ce ID: 0001 Adam lable Time: 01:30:00 PM Maryanne power [facility] 14:56:29 Depressi ve disorder [id number] Completed 201508/31/2021 Major depressi ve disorder , single episode, unspecif ied;David rded Elsewher e: No Locat ion: [facility] S ource: EHR Barratte Operator cee: N Gopal ce ID: 0001 Adam lable Time: 03:30:00 PM Maryanne power [facility] 14:55:[address] Concept Completed 201708/31/2021 Encntr for general adult medical exam w/o abnormal findings ;Recorde d Elsewher e: No Locat ion: [facility] S ource: EHR Barratte Operator cee: N Gopal ce ID: 0001 Adam lable Time: 08:30:00 AM Maryanne power [facility] 14:56:26 Speciali zed medical examinat ion Completed 201108/31/2021 Gynecolo gical Examinat ion;David rded Elsewher e: No Locat ion: [facility] S ource: EHR Barratte Operator cee: N Practi ce ID: 0001 Adam lable Time: 02:30:00 PM Maryanne power, [facility] 14:56:32 Screenin g for malignan t neoplasm of cervix Completed 201208/31/2021 Screenin g for malignan t neoplasm s of the cervix;R ecorded Elsewher e: No Locat ion[facility] S ource: EHR Barratte Operator cee: N Practi ce ID: 0001 Adam lable Time: 08:30:00 AM Maryanne power, [facility] 14:56:09 Menopaus al symptom [id number] Completed 201008/31/2021 Menopaus al or female climacte avis states;R ecorded Elsewher e: No Locat ion: [facility] S ource: EHR Barratte Operator cee: N Practi ce ID: 0001 Adam lable Time: 08:30:00 AM Maryanne power, [facility] 14:56:03 Screenin g for malignan t neoplasm of rectum Completed 201108/31/2021 Screenin g for malignan t neoplasm s of the rectum;R ecorded Elsewher e: No Locat ion: [facility] S ource: EHR Barratte Operator cee: N Practi ce ID: 0001 Adam lable Time: 02:30:00 PM Maryanne power, [facility] 14:56:21 Amenorrh ea [id number] Completed 201008/31/2021 Absence of menstrua tion;Rec orded Elsewher e: No Locat ion[facility] S ource: EHR Barratte Operator cee: N Practi ce ID: 0001 Adam lable Time: 08:30:00 AM Maryanne power [facility] 14:55:42 Body mass index 30+ - obesity [id number] Completed 201708/31/2021 Body mass index (BMI) 38.0-38. 9, adult;Re corded Elsewher e: No [facility] Operator cee: N Practi ce ID: 0001 Adam lable Time: 08:30:00 AM Maryanne Landry jannet, [facility] 14:55:45 Adult health examinat ion Completed 201208/31/2021 Routine Medical Exam;Rec orded Elsewher e: No Locat ion: [facility] S ource: EHR Barratte Operator cee: N Gwendolynti ce ID: 0001 Adam lable Time: 08:30:00 AM Maryanne power, [facility] 14:55:41 Clinical finding Completed 201808/31/2021 Obesity; Recorded Elsewher e: No [facility]at ion[facility] S ource: EHR Barratte Operator cee: N Gwendolynti ce ID: 0001 Adam lable Time: 10:15:00 AM Maryanne Landry jannet, [facility] 14:55:57 Obesity [id number] Completed 201308/31/2021 Obesity; Recorded Elsewher e: No [facility]: EHR [facility] Operator cee: N Practi ce ID: 0001 Adam lable Time: 08:30:00 AM Maryanne Landry jannet, [facility] 14:56:[address] Concept Completed 201508/31/2021 Anxiety; Recorded Elsewher e: No Locat ion[facility] S ource: EHR Barratte Operator cee: N Practi ce ID: 0001 Adam lable Time: 03:30:00 PM Maryanne power [facility] 14:56:24 Screenin g for malignan t neoplasm of colon Completed 201008/31/2021 Special screenin g for malignan t neoplasm s, colon;Pr actice ID: 0001 Maryanneantonia Landry [facility] 14:56:17 Blood leukocyt e number above referenc e range [id number] Completed 201808/31/2021 Elevated white blood cell count, unspecif ied;Prac abdoul ID: 0001 Maryanne Landry [facility] 14:56:00 Finding of body mass index [id number] Completed 201808/31/2021 Body mass index (BMI) 40.0-44. 9, adult;Pr actice ID: 0001 Maryanne Landry [facility] 14:55:55 Problem Notes None recorded. Procedures Surgical History Date Name Laterality Status Provider Name and Address Organization Details Recorded Time 09/01/20 21 Date of Last Pap Smear completed [facility] 09/01/2021 12:58:03 08/16/20 20 Date of Last Mammogram completed [facility] 08/31/2021 15:20:06 11/04/19 18 Other completed [facility] 04/26/2020 17:20:02 11/04/19 18 Other completed [facility] 04/26/2020 17:20:35 11/04/19 18 procedure on ankle completed [facility] 04/26/2020 17:21:34 11/04/19 18 procedure on ankle completed [facility] 04/26/2020 17:22:06 12/05/19 16 Unlisted px brigitte's dvrtclm [facility] 15:18:34 11/04/19 12 Carpal tunnel surgery completed [facility] 04/26/2020 17:22:29 11/04/19 11 Colonoscopy completed [facility] 04/26/2020 17:22:50 05/31/20 10 Laparoscopy completed [facility] 04/26/2020 17:24:44 11/04/19 10 Endometrial Ablation completed [facility] 04/26/2020 17:26:09 11/04/19 07 Hysteroscopy completed [facility] 04/26/2020 17:25:46 Orthopedic Surgery completed [facility] 08/06/2023 09:58:33 Colonoscopy completed [facility] 08/06/2023 09:58:33 Imaging Results None recorded. Procedure Notes None recorded. Medical Equipment None Reported. Allergies No known drug allergies Medications Name Sig Start Date Stop Date Status Note LastModified by Organization Details LastModified Time atorvasta tin 40 mg tablet TAKE 1 TABLET BY MOUTH EVERY DAY AT BEDTIME active Not Available Not Available No t Available atorvasta tin 20 mg tablet TAKE 1 TABLET BY MOUTH ONCE DAILY 08/05 completed Not Available Not Available Not Available trazodone 50 mg tablet take 1 tablet by oral route 3 times every day after meals 09/01 completed Prescrib ed Elsewher e: Yes Loca tion: [facility] odify By: liz marcos DateTime : 08/01/20 11 02:00:00 PM Not Available Not Available Not Available atorvasta tin 10 mg tablet take 1 tablet by oral route every day 09/01 completed Prescrib ed Elsewher e: Yes Loca tion: [facility] M odify By: franky lockett DateTime : 12/26/19 18 08:30:00 AM Not Available Not Available Not Available azithromy jose 250 mg tablet TAKE 2 TABLETS BY MOUTH ON DAY 1, AND THEN TAKE 1 TABLET BY MOUTH ONCE A DAY ON DAY 2 THROUGH DAY 5 08/05 completed Not Available Not Available Not Available benzonata te 200 mg capsule TAKE 1 CAPSULE BY MOUTH THREE TIMES DAILY NEEDED FOR COUGH 08/05 completed Not Available Not Available Not Available ondansetr on HCl 4 mg tablet TAKE 1 TABLET BY MOUTH EVERY 8 HOURS NEEDED FOR NAUSEA AND VOMITING 08/06 completed Not Available Not Available Not Available sertralin e 100 mg tablet Take 1 tablet by mouth once daily 2023 active Not Available Not Available Not Avai lable Zyrtec 10 mg tablet take 1 tablet by oral route every day 09/10 completed Prescrib ed Elsewher e: Yes Loca tion: [facility] odify By: eileen breen DateTime : 12/10/19 12 08:30:00 AM Not Available Not Available Not Available Vitamin B-12 50 mcg tablet 12/26 completed Prescrib ed Elsewher e: Yes [facility] By: amfarhat martinezunthussein DateTime : 09/20/20 14 08:30:00 AM Not Available Not Available Not Available levothyro xine 100 mcg tablet TAKE 1 TABLET BY MOUTH ONCE DAILY 09/01 completed Not Available Not Available Not Available Levoxyl 25 mcg tablet take 1 tablet by oral route every day 09/01 completed Prescrib ed Elsewher e: Yes [facility] By: liz marcos DateTime : 08/01/20 11 02:00:00 PM Not Available Not Available Not Available prednisol one acetate 1 % eye drops,zhen pension 08/23 completed Not Available Not Available Not Available Zoloft 50 mg tablet take 1 tablet by oral route every day 12/26 completed Prescrib ed Elsewher e: No [facility] By: amfarhat Duran ncounter DateTime : 03/23/20 16 02:45:00 PM Not Available Not Available Not Available Euthyrox 75 mcg tablet 08/23 completed Not Available Not Available Not Available trazodone 100 mg tablet TAKE 2 TABLETS BY MOUTH ONCE DAILY active Not Available Not Available No t Available dicyclomi ne 20 mg tablet TAKE 1 TABLET BY MOUTH 4 TIMES DAILY NEEDED FOR ABDOMINA L PAIN active Not Available Not Available No t Available benzonata te 100 mg capsule TAKE 1 CAPSULE BY MOUTH TWICE DAILY NEEDED FOR COUGH 08/05 completed Not Available Not Available Not Available Euthyrox 88 mcg tablet 09/01 completed Not Available Not Available Not Available metformin 1,000 mg tablet take 1 tablet by oral route 2 times every day with morning and evening meals 09/01 completed Prescrib ed Elsewher e: Yes Loca tion: [facility] odify By: liz marcos DateTime : 08/01/20 11 02:00:00 PM Not Available Not Available Not Available levothyro xine 125 mcg tablet TAKE 1 TABLET BY MOUTH ONCE DAILY active Not Available Not Available No t Available magnesium 100 mg capsule 03/23 completed Prescrib ed Elsewher e: Yes Loca tion: [facility] odify By: franky martinezunthussein DateTime : 09/15/20 13 08:30:00 AM Not Available Not Available Not Available niacin 500 mg tablet take 1 tablet by oral route 3 times every day 12/26 completed Prescrib ed Elsewher e: Yes Loca tion: [facility] odify By: franky martinezunthussein DateTime : 08/01/20 11 02:00:00 PM Not Available Not Available Not Available omeprazol e 20 mg capsule,d elayed release TAKE 1 CAPSULE BY MOUTH ONCE DAILY 08/06 completed Not Available Not Available Not Available diclofena c sodium 75 mg tablet,de layed release TAKE 1 TABLET BY MOUTH TWICE DAILY WITH FOOD active Not Available Not Available No t Available Zydone 5 mg-400 mg tablet take 1 - 2 tablet by oral route 4 - 6 hours as needed for pain not to exceed 8 tablets in 24hrs 09/15 completed Prescrib ed Elsewher e: Yes Loca tion: [facility] odify By: ted martinezunthussein DateTime : 12/10/19 12 08:30:00 AM Not Available Not Available Not Available Pravachol 80 mg tablet take 1 tablet by oral route every day 03/23 completed Prescrib ed Elsewher e: Yes Loca tion: [facility] odify By: franky lockett DateTime : 08/01/20 11 02:00:00 PM Not Available Not Available Not Available albuterol sulfate HFA 90 mcg/actua tion aerosol inhaler INHALE 1 PUFF BY MOUTH 4 TIMES DAILY NEEDED FOR SHORTNES S OF BREATH FOR WHEEZING 08/05 completed Not Available Not Available Not Available Vitamin D2 1,250 mcg (50,000 unit) capsule take 1 capsule by oral route every week 09/20 completed Prescrib ed Elsewher e: Yes [facility] By: franky lockett DateTime : 12/10/19 12 08:30:00 AM Not Available Not Available Not Available cefdinir 300 mg capsule 08/06 completed Not Available Not Available Not Available metformin ER 500 mg tablet,ex tended release 24 hr TAKE 1 TABLET BY MOUTH IN THE EVENING active Not Available Not Available No t Available levothyro xine 112 mcg tablet TAKE 1 TABLET BY MOUTH ONCE DAILY 09/01 completed Not Available Not Available Not Available Crestor 5 mg tablet take 2 tablet by oral route every day 12/26 completed Prescrib ed Elsewher e: Yes [facility] By: franky lockett DateTime : 03/23/20 16 02:45:00 PM Not Available Not Available Not Available bupropion HCl XL 150 mg 24 hr tablet, extended release TAKE 1 TABLET BY MOUTH ONCE DAILY 08/06 completed Not Available Not Available Not Available Fiber Therapy (methylce llulose) 500 mg tablet 08/06 completed Prescrib ed Elsewher e: Yes [facility]ify By: franky lockett DateTime : 09/20/20 14 08:30:00 AM Not Available Not Available Not Available metformin 09/01 completed Not Available Not Available Not Available cholecalc iferol (vitamin D3) 1,250 mcg (50,000 unit) capsule TAKE 1 CAPSULE BY MOUTH ONCE A WEEK 08/06 completed Not Available Not Available Not Available Fish Oil 360 mg-1,200 mg capsule 03/23 completed Prescrib ed Elsewher e: Yes Loca tion: [facility] odify By: franky lockett DateTime : 08/01/20 11 02:00:00 PM Not Available Not Available Not Available Viibryd 40 mg tablet take 1 tablet (40MG) by oral route every day with food 05/08 completed Prescrib ed Elsewher e: No Locat ion: [facility] odify By: franky Duran ncounter DateTime : 06/28/20 14 10:47:58 AM Not Available Not Available Not Available Viibryd 20 mg tablet take 2 tablet (40MG) by oral route every day with food 09/20 completed Prescrib ed Elsewher e: No Locat ion: [facility] odify By: franky Duran ncounter DateTime : 01/02/20 12 10:21:20 AM Not Available Not Available Not Available Mounjaro 5 mg/0.5 mL subcutane ous pen injector INJECT 1 SYRINGE SUBCUTAN EOUSLY ONCE A WEEK active Not Available Not Available No t Available Mounjaro 2.5 mg/0.5 mL subcutane ous pen injector INJECT 1 SYRINGE SUBCUTAN EOUSLY ONCE A WEEK active Not Available Not Available No t Available Vitals Date Recorded Body height Body mass index (BMI) Body weight Systolic blood pressure Diastolic blood pressure Provider Name and Address Organization Details Last Updated DateTime 08/06/2023 167.01 cm 40.2 kg/m2 795205.3 2 g 102 mm[Hg] 70 mm[Hg] Rachel Álvarez [facility] 3 09:58:15 Date Recorded Body height Body mass index (BMI) Body weight Systolic blood pressure Diastolic blood pressure Provider Name and Address Organization Details Last Updated DateTime 08/23/2020 167.01 cm 41.6 kg/m2 725966.6 5 g 110 mm[Hg] 71 mm[Hg] Maryanne Landry [facility] 0 15:19:19 Date Recorded Body height Body mass index (BMI) Body weight Systolic blood pressure Diastolic blood pressure Provider Name and Address Organization Details Last Updated DateTime 09/01/2021 167.01 cm 39.8 kg/m2 973226.1 3 g 119 mm[Hg] 77 mm[Hg] Maryanne Landry [facility] 09:39:50 Social History Question Answer Notes LastModified by Organizat ion Details LastModified Time Tobacco Smoking Status Never Smoker Zully Travis jannet, [facility] 08/06/2023 09:40:07 Do You Have An Advance Directive? No [email or web address] Information n ot available 09/01/2021 Are You Blind Or Do You Have Difficulty Seeing? No [email or web address] Information n ot available 09/01/2021 In The 14 Days Before Symptom Onset, Have You Had Close Contact With A Laboratory-confirm ed COVID-19 While That Case Was Ill? No [email or web address] Information n ot available 09/01/2021 In The 14 Days Before Symptom Onset, Have You Had Close Contact With A Person Who Is Under Investigation For COVID-19 While That Person Was Ill? No Information not available 09/01/2021 Have You Been To An Area Known To Be High Risk For COVID-19? No [email or web address] Information not available 09/01/2021 Are You Deaf Or Do You Have Serious Difficulty Hearing? No [email or web address] Information not available 09/01/2021 What Is The Highest Grade Or Level Of School You Have Completed Or The Highest Degree You Have Received? [id number] [email or web address] Information not available 09/01/2021 Are There Any Guns Present In Your Home? No [email or web address] Information not available 09/01/2021 What Was The Date Of Your Most Recent Tobacco Screening? 09/01/2021 [email or web address] Information not available 08/06/2023 Do You Use Your Seat Belt Or Car Seat Routinely? Yes [email or web address] Information not available 09/01/2021 Do You Have Smoke And Carbon Monoxide Detectors In Your Home? Yes [email or web address] Information not available 09/01/2021 How Much Tobacco Do You Smoke? No [email or web address] Information not available 08/23/2020 Do You Use Sunscreen Routinely? No [email or web address] Information not available 09/01/2021 Have You Used IV Drugs? No [email or web address] Information not available 09/01/2021 Do You Have Difficulty Walking Or Climbing Stairs? No Information not available 08/06/2023 Sex: Unknown Functional Status Question Answer Note LastModified by Organizat ion Details LastModified Time Do you use any illicit or recreational drugs? No [email or web address] Information not available 09/01/2021 What is your level of alcohol consumption? None [email or web address] Information not available 09/01/2021 Do you or have you ever used smokeless tobacco? Never used smokeless tobacco [email or web address] Information not available 08/06/2023 Are you able to walk? YESASSIST [email or web address] Information not available 09/01/2021 Are you able to care for yourself? 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 No Information not available 08/06/2023 Do you or have you ever used e-cigarettes or vape? Never used electronic cigarettes [email or web address] Information not available 08/06/2023 What is your exercise level? Occasional [email or web address] Information not available 08/23/2020 Mental Status Question Answer Note LastModified by Organization D etails LastModified Time Do you feel stressed (tense, restless, nervous, or anxious, or unable to sleep at night)? [id number] [email or web address] Information not available 09/01/2021 Family History Relationship Description Onset Age of this Age Resolved Age Notes LastModified by Organization Details LastModified Time Mother Malignant tumor of breast [email or web address] Not available 04/26 17:16:24 Mother Heart disease Not available 04/26 17:16:53 Mother Hypertensive disorder [email or web address] Not available 04/26 17:17:21 Mother Hyperlipidem ia Not available 2022 09:40:06 Mother Diabetes mellitus [email or web address] Not available 04/26 17:18:17 Mother Anemia [email or web address] Not available 04/26/2020 17:18:27 Mother Malignant tumor of cervix [email or web address] Not available 04/26 17:18:45 Paternal Grandmother Heart disease [email or web address] Not available 04/26 17:16:53 Paternal Grandmother Hypertensive disorder [email or web address] Not available 04/26 17:17:21 Sister Hypertensive disorder [email or web address] Not available 04/26 17:17:21 Sister Diabetes mellitus [email or web address] Not available 04/26 17:18:17 Father Hyperlipidem ia [email or web address] Not available 2022 09:40:07 Father Malignant tumor of colon [email or web address] Not available 04/26 17:19:03 Notes:aunt: Congenital heart disease Father: Hyperlipidemia, Cancer, colon Mother: Diabetes mellitus, Hypertension, Cervical cancer, Hyperlipidemia, Cancer, breast, Anemia, Congenital heart disease Paternal grandmother: Hypertension, Hyperlipidemia, Congenital heart disease Sister: Diabetes mellitus, Hypertension Medical History Condition Response Other N Blood Transfusion N Dermatologic Disorders N Gestational Diabetes N Anxiety Disorder Y Autoimmune disease N Arthritis Y Polyps N Infertility N Acid Reflux (GERD) Y Cancer N Varicosities N Stroke N Neurologic/Epilepsy N Fibromyalgia N Headaches N Kidney Disease N Heart Problems N Kidney or Bladder Problems N Eating Disorder N Art (IVF or FET) N Hepatitis/Liver Disease N No Past Medical History N Urinary Tract Infection N Asthma N Trauma/Violence N Thrombophilias N Allergies (Food, seasonal, environmental ) Y Breast Cancer N Drug/Latex Allergies/Reactions N Lung Disease N Defects or Inherited Disease N Breast Problem N Hematologic disorders N Anesthesia Complications N History of STI N Deep Vein Thrombosis N Polycystic ovary syndrome N History of abnormal pap Y Endometriosis N High Cholesterol Y Thyroid Problems Y GI Problems N Anemia N Psychiatric Illness N Ovarian Cancer N Diabetes Y Pulmonary (TB, Asthma) N Eczema N Abuse/Domestic Violence N Depression/ depression Y Heart Disease N Pre-Eclampsia N Hypertension Y Osteoporosis N Gynecological History Statement/Question Response Abnormal Pap N Date of Last Mammogram 08/16/2020 Date of LMP 11/04/2009 On BCP's at Conception? Y N Was last menstrual period normal Y STIs/STDs N HPV Vaccine N Current Control Method Ablation Age at First Child 36 If Post Menopausal, Age at Menopause 52 Sexually Active? Y None Age of first menstrual cycle 15 Date of Last Pap Smear 09/01/2021 Sexual Problems? N Desired Control Method None LMP Unknown N Obstetrics History GPAL:G 1 P 1 0 0 1 Type Value Full Term 1 Living 1 Total 1 Past Encounters Encounter ID Performer Location Encounter Start Date Encounter Closed Date Diagnosis/Indication Diagnosis SNOMED-CT Code Diagnosis ICD10 Code [id number] [address],[place] [address] 08/23/2020 14:51:26 08/23/2020 16:00:05 [id number] [facility] [address],[place] [address] 09/01/2021 09:19:59 09/01/2021 11:42:39 Gynecologic examination 13144740 Z12.31 [id number] ELKIN Tirado [facility] [address],[place] [address] 08/06/2023 09:37:52 08/06/2023 12:00:09 Gynecologic examination 44295189 Z01.419 WWEpostmen opausalpap updatedSTI testing declinedma mmogram order given and encouraged to scheduleco lonoscopy UTDdexa - has scheduled (ordered through PCP)UTD with PCP for routine labsRTC in 1 year or sooner if needed Encouraged adequate Calcium with Vitamin D dailyDo monthly self breast exams.It is advised to get annual flu shot in the fall and she could obtain at [facility] or [facility] care clinic. If you haven't received the Tdap vaccine in the last 10 years you should obtain one as well.Have mammogram yearly, bone density every 2-3 years and colonoscop y every 5-10 years depending on findings and history.En elliot in daily exercise of low impact aerobic exercise 45-60 minutes 4-5 times weekly. Avoid tobacco and illicit drugs as well as using moderation with alcohol intake less than 1-2 8 oz beverages daily. This lifestyle behavior pattern will lead to less health conditions and longer life span. If BMI greater than 25 dietary consult advised.Qu estions have been answered. 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 BENEFITS PLAN (O) [id number] Michaelle Kennedy [id number] OI Michaelle Kennedy 09/01/2021 1 [employer] - DOS PRIOR TO [address] - [facility] BENEFITS PLAN (HMO) [id number] Michaelle R Brent [id number] OI Michaelle Kennedy 08/06/2023 1 [employer] - DOS ON OR AFTER [address] - [facility] BENEFITS PLAN (PPO) [id number] Michaelle R Brent [id number] OI Michaelle Kennedy Notes Date Note Type Note Provider Name and Address Organization Details Recorded Time 08/23/2020 text/html Annual GYNReport ed bypatient.Menstrual cycle:Normal menses Urinary symptoms:No hematuria; No incontinence Vulva:No genital lesion Vagina:Normal vaginal discharge Breast:No breast pain; No breast lump; No nipple discharge Sexual complaints:No sexual complaints; No pain during intercourse; Normal libido Menopausal Symptoms:No menopausal symptoms; Normal vaginal lubricationNotes:happ y with anxiety and depression drugs, 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.Menopausal Symptoms:no menopausal symptoms; normal vaginal lubrication Vaginal Bleeding:history of menopause having occurred; no history of post menopausal bleeding Urinary Symptoms:no hematuria; no incontinence; no nocturia; no urinary frequency Vulva:no genital lesion; no vulvar atrophy Vagina:normal vaginal discharge; no vaginal atrophy Breast:no breast lump; no nipple discharge; no breast pain Sexual Complaints:no sexual complaints Psychological Symptoms:no depression; no anxiety Preventive Measures:encourage regular mammograms starting age 40; encourage self breast examination; encourage regular exercise; encourage no tobacco use; mammogram performed within the past year; history of recent colonoscopy; needs to schedule bone densityNotes:on sertraline for 10+ years for management of depressiondoing well and would like to continue on this medicationdenies any negative SE ELKIN Tirado [address], [place], [address], [facility] 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 07/27/20 20 1 CLOSED Fetus Data First Name Last Name Admitted to NICU Weight (g) Sex Living Outcome Pediatric Complications Fetus ID Race Codes Race Delivery Type 3345.24 1 F Full Term [id number] Vaginal Delivery Dante Calculation Initial Dante Date Initial Exam Date Initial Exam Provider Initial Ultrasound Date Last Menstrual Period Date Ultra Sound Weeks Gestation 0 Eighteen To Twenty Week Dante Update Ultra Sound Date Fundal Height At Umbil Quickening Date Ultra Sound Latest Weeks Gestation Final Dante Confirmed By Final Dante Confirmed Date Final Dante Date Ultra Sound Latest Days Gestation 0 0 Menstrual History Last Menstrual Date Menses Monthly On Bcp Conception Prior Menses Frequency Hcg Plus Date Menarche Onset Age Delivery Information Delivery Date Delivery Type Labor Anesthesia Weeks Gestation Incision Type Labor Labor Length Hrs Delivered By Post Complications Tubal Sterilization Discharge Date Comments 7 39 Ambika Discharge Information Feeding Method Contraceptive Method Maternal HG B and HCT Levels
[2025-04-04 19:00] VITALS: BP 108/56; PULSE 80; RESP 20; O2SAT 97
[2025-04-04] MEDS: ORPHENADRINE CITRATE 100 MG TABLET.ER PO (19:22)
[2025-04-04] MEDS: KETOROLAC 15 MG/ML VIAL (*BKC) IV PUSH (19:23)
[2025-04-04 19:26] VITALS: BP 108/56; PULSE 80; RESP 20; O2SAT 97
== END 2025-04-04 19:26 | disposition home or self-care (01) ==
PROVIDERS: Emergency Provider Emergency Medicine; PCP Family Medicine
DX: S29.012A Strain of muscle and tendon of back wall of thorax, initial encounter (principal); S60.221A Contusion of right hand, initial encounter; S20.211A Contusion of right front wall of thorax, initial encounter; V43.52XA Car driver injured in collision with other type car in traffic accident, initial encounter; R82.998 Other abnormal findings in urine
CPT/HCPCS: 36415; 71260; 73130; 74177; 80053; 81001; 84484; 85025; 87086; 93005; 96374; 99284; A9270; J1885; Q9967

== ENCOUNTER 2025-09-03 07:08 | Outpatient (CLI) | payer OTHER, SELFPAY ==
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
--- NOTE | ~2025-09-03 | MM_ITS ---
EXAMINATION: MM screening [facility] BI w [place] HISTORY: Screening TECHNIQUE: Craniocaudal and mediolateral oblique 3-D tomosynthesis images were obtained and synthetic 2-D images were generated. CAD analysis was submitted and interpreted. COMPARISON: Comparison to multiple prior studies sequentially, with oldest reviewed study dated 12/05/2015. BREAST PARENCHYMAL COMPOSITION: Not dense: There are scattered areas of fibroglandular density. FINDINGS: There is no evidence of suspicious mass, calcification, or architectural distortion to suggest malignancy in either breast. There has been no suspicious interval change. IMPRESSION: 1. No mammographic evidence of malignancy. 2. Recommend routine screening mammography in one year. BI-RADS Category 1: Negative Reviewed, dictated and finalized at location B.
== END 2025-09-03 07:09 | disposition home or self-care (01) ==
PROVIDERS: PCP Family Medicine; Visit Provider Family Medicine
DX: M17.11 Unilateral primary osteoarthritis, right knee (principal); M25.461 Effusion, right knee; Z12.31 Encounter for screening mammogram for malignant neoplasm of breast
CPT/HCPCS: 73562; 77063; 77067

== ENCOUNTER 2025-09-08 11:03 | Outpatient (CLI) | payer OTHER, SELFPAY ==
--- NOTE | ~2025-09-08 | MR_ITS ---
EXAMINATION: MR knee RT wo con DATE: 09/08/2025 13:23 INDICATION: Right knee pain TECHNIQUE: Magnetic resonance imaging (MRI) of the right knee was performed without intravenous contrast. Sequences included coronal PD-weighted FSE, coronal PD-weighted FS FSE, sagittal T2-weighted FSE, sagittal PD-weighted FS FSE and axial PD weighted fat saturated FSE. COMPARISON: None. FINDINGS: Medial compartment: There is a longitudinal horizontal tear extending to the inferior articular surface at the posterior body of the medial meniscus. Deep chondral fissure with minimal underlying edema-like signal change at the anterior weightbearing medial femoral condyle. Mild chondral swelling along the lateral aspect medial tibial plateau. Lateral compartment: Complex lateral meniscal tear which includes a longitudinal component extending obliquely to the inferior articular surface at the posterior horn and with macerated appearance to the anterior horn and lateral extruded body of the lateral meniscus. Full/near full-thickness chondral ulceration with underlying cortical irregularity and subarticular cystlike changes at the central, medial and posterior aspects of the lateral tibial plateau. Additional deep chondral ulceration without degenerative subchondral changes at the central to posterior weightbearing lateral femoral condyle. Patellofemoral compartment: Partial-thickness chondral ulceration and deep fissuring with mild subarticular edema-like signal change at the patellar apical ridge. Additional partial- thickness cartilage loss and mild chondral surface regularity without degenerative subchondral changes at the medial patellar facet. Partial-thickness chondral ulceration involving the partially medial and lateral trochlea and intervening trochlear groove with small central subchondral osteophytes at the central aspect of the trochlear groove. Ligaments and tendons: Anterior and posterior cruciate ligaments are normal. The medial collateral ligament and fibular collateral ligament complex are normal. The extensor mechanism is normal. The visualized medial and lateral hamstring tendons as well as the iliotibial band are normal. Fluid: Small right knee joint effusion. No loose osteochondral bodies identified. Osseous/other: Bone alignment is normal. No fracture or pathologic marrow replacing process. IMPRESSION: 1. Medial and lateral meniscal tears. 2. 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 3. Likely reactive right knee joint effusion. Reviewed, dictated and finalized at location A. CHER DRIVER IMPRESSION: 1. Medial and lateral meniscal tears. 2. 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 3. Likely reactive right knee joint effusion.
== END 2025-09-08 11:04 | disposition home or self-care (01) ==
LOC: MICIMG 11:04
PROVIDERS: PCP Family Medicine; Visit Provider Family Medicine
DX: S83.281A Other tear of lateral meniscus, current injury, right knee, initial encounter (principal); S83.241A Other tear of medial meniscus, current injury, right knee, initial encounter; X58.XXXA Exposure to other specified factors, initial encounter; M17.11 Unilateral primary osteoarthritis, right knee
CPT/HCPCS: 73721